=== PATIENT | female | born 1980 | race Caucasian/White ===

== ENCOUNTER 2016-09-23 05:35 | Inpatient (IN) | payer BC ==
[2016-09-26] MEDS ORDERED: GLUCOPHAGE-DPS500 MG PO (12:34)
[2016-09-26] MEDS ORDERED: PRENATAL VIT1 TAB PO (12:34)
[2016-09-26] MEDS ORDERED: FERRO-TIME325 MG PO (12:34)
[2016-09-26] MEDS ORDERED: COLACE-DPS100 MG PO (12:34)
[2016-09-26] MEDS ORDERED: NIPPLECREAM TP (12:35)
[2016-09-26] MEDS ORDERED: MYLICON DPS80 MG PO (12:35)
[2016-09-26] MEDS ORDERED: LAN-O-SOOTHE7 GM TP (12:35)
[2016-09-26] MEDS ORDERED: MOTRIN-DPS800 MG PO (12:35)
[2016-09-26] MEDS ORDERED: PERCOCET 5 DPS1 TAB PO (12:35)
== END 2016-09-25 12:00 | disposition home or self-care (01) | DRG 765 ==
DX: O34.211 Maternal care for low transverse scar from previous cesarean delivery (principal); O24.12 Pre-existing type 2 diabetes mellitus, in childbirth; O10.92 Unspecified pre-existing hypertension complicating childbirth; O99.214 Obesity complicating childbirth; Z68.42 Body mass index [BMI] 45.0-49.9, adult; E11.9 Type 2 diabetes mellitus without complications; O99.02 Anemia complicating childbirth; D50.9 Iron deficiency anemia, unspecified; E66.01 Morbid (severe) obesity due to excess calories; Z79.4 Long term (current) use of insulin; Z37.0 Single live birth; Z3A.37 37 weeks gestation of pregnancy